=== PATIENT | male | born 1950 | race Caucasian/White ===

== ENCOUNTER 2018-08-13 15:02 | Emergency (ER) | payer MEDICARE ==
[~2018-08-13] VITALS: Ht 182.9 cm; Wt 136.1 kg
--- NOTE | 2018-08-13 16:24 | Diagnostic Imaging Report ---
EXAMINATION: CHEST SINGLE (NOT PORTABLE) INDICATION: ^ERMD ORDER ^[id number] ^1530 ^Y COMPARISON: None FINDINGS: AP view TUBES and LINES: None. LUNGS: Lungs are hyperinflated. There is no evidence of pneumonia or pulmonary edema. PLEURA: No significant pleural effusion or pneumothorax. HEART AND MEDIASTINUM: The cardiomediastinal silhouette is unremarkable. BONES AND SOFT TISSUES: No acute osseous lesion. Soft tissues are unremarkable. UPPER ABDOMEN: No free air under the diaphragm. IMPRESSION: Hyperinflated lungs, suggestive of emphysematous changes. No focal consolidation. Signed by: Dr. Cooper Vega MD on 08/13/2018 4:21 PM
[2018-08-13 16:26] LABS: BASOPHILS % 0.7 % (0.0-1.0); EOSINOPHILS # (AUTO) 0.2 (0.0-0.4); HEMATOCRIT 40.6 % (38.2-49.6); HEMOGLOBIN 14.6 g/dL (14.0-18.0); LYMPHOCYTES # (AUTO) 0.6 (1.0-3.2); LYMPHOCYTES % 14.3 % (18.0-39.1); MEAN CORPUSCULAR HEMOGLOBIN 30.7 pg (28-32); MEAN CORPUSCULAR VOLUME 85.5 fL (81-99); MONOCYTES # (AUTO) 0.5 (0.2-0.8); MONOCYTES % 10.8 % (4.4-11.3); NEUTROPHILS % 69.5 % (38.7-80.0); PLATELET COUNT 109 x10e3/uL (140-360); RED BLOOD COUNT 4.75 x10e6/uL (4.3-5.7); RED CELL DISTRIBUTION WIDTH 14.5 % (11.7-14.4)
[2018-08-13 16:41] LABS: INR 0.86; PROTHROMBIN TIME 12.2 seconds (11.9-14.5)
[2018-08-13 16:42] LABS: PARTIAL THROMBOPLASTIN TIME 32.8 seconds (23.8-35.5)
[2018-08-13 16:45] LABS: CLARITY,URINE CLEAR (CLEAR); COLOR,URINE YELLOW (YELLOW)
[2018-08-13 16:46] LABS: KETONES,URINE 1+ (NEGATIVE); LEUKOCYTE ESTERASE ,URINE NEGATIVE (NEGATIVE); NITRITE,URINE NEGATIVE (NEGATIVE); PROTEIN,URINE DIPSTICK TRACE (NEGATIVE)
[2018-08-13 16:49] LABS: ALANINE AMINOTRANSFERASE 118 IU/L (0-55); ALBUMIN 3.4 g/dL (3.5-5.0); ALBUMIN/GLOBULIN RATIO 1.2 (0.8-2.0); ALKALINE PHOSPHATASE 120 IU/L (40-150); ANION GAP 15.2 mmol/L (8-16); BLOOD UREA NITROGEN 13 mg/dL (7-26); BUN/CREATININE RATIO 17 (6-25); CALCIUM 9.2 mg/dL (8.4-10.2); CARBON DIOXIDE 22 mmol/L (22-29); CHLORIDE 101 mmol/L (98-107); CREATINE KINASE 129 IU/L (30-200); CREATININE, SERUM 0.76 mg/dL (0.72-1.25); EST GLOMERULAR FILTRATION RATE > 60 ML/MIN (60-); GLUCOSE 279 mg/dL (74-118); MAGNESIUM 2.2 MG/DL (1.3-2.1); POTASSIUM 3.2 mmol/L (3.5-5.1); SODIUM 135 mmol/L (136-145)
[2018-08-13 16:51] LABS: BILIRUBIN,URINE 1+ (NEGATIVE); URINE UROBILINOGEN 1 mg/dL (0.2 - 1)
[2018-08-13 17:11] LABS: THYROID STIMULATING HORMONE 3.016 uIU/mL (0.350-4.940)
[2018-08-13 17:46] LABS: MUCUS,URINE RARE (RARE)
[2018-08-13 17:47] LABS: CALCIUM OXALATE CRYSTALS,UR FEW (FEW); RBC,URINE 0-5 /HPF (0-5); WBC,URINE (MAN) 0-5 /HPF (0-5)
[2018-08-13] MEDS ORDERED: IOPAMIDOL 370 MG/ML 200 ML INFUS..BTL INJ ONE (18:44)
[2018-08-13] MEDS ORDERED: SODIUM CHLORIDE 0.9% 50ML 50 ML ONE (18:44)
--- NOTE | 2018-08-13 19:06 | Diagnostic Imaging Report ---
Exam: Head CT without contrast History: Numbness Comparison studies: None Technique: Axial images were obtained from the skull base to the vertex. Coronal and sagittal images reconstructed from the axial data. Dose modulation, iterative reconstruction, and/or weight based adjustment of the mA/kV was utilized to reduce the radiation dose to as low as reasonably achievable. Radiation dose: Total DLP: 921 mGy*cm. Estimated effective dose: DLP x 0.015 Intravenous contrast: None Findings: Scalp: No abnormalities. Bones: No fractures, blastic or lytic lesions. Brain sulci: Moderately prominent bilateral parietal sulci. Remaining sulci are mildly prominent. Ventricles: Normal in size and configuration. No hydrocephalus. Extra-axial spaces: Incidental small mucous cisterna magna. No mass or fluid collection. Parenchyma: No mass, acute hemorrhage or acute cortical infarcts. A few subtle hypodensities in the supratentorial white matter nonspecific most compatible with chronic microvascular ischemic changes. Sellar/suprasellar region: No abnormalities. Craniocervical junction: Patent foramen magnum. No Chiari one malformation. 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 Atherosclerotic calcifications in the carotid siphons. IMPRESSION: No acute intracranial abnormalities. Chronic findings: 1. Mild microvascular ischemic changes. 2. Mild generalized brain volume loss with greater disproportionate volume loss in the bilateral parietal lobes. Signed by: Dr. Pardeep Keith M.D. on 08/13/2018 7:03 PM
--- NOTE | 2018-08-13 19:08 | Diagnostic Imaging Report ---
EXAM: CT Abdomen and Pelvis WITH contrast INDICATION: ^r/o sbo divertic pancreatitis appy ^[id number] ^1700 COMPARISON: None. TECHNIQUE: Abdomen and pelvis were scanned utilizing a multidetector helical scanner from the lung base to the pubic symphysis after administration of IV contrast. Coronal and sagittal reformations were obtained. Dose modulation, iterative reconstruction, and/or weight based adjustment of the mA/kV was utilized to reduce the radiation dose to as low as reasonably achievable. Routine protocol was performed. Scan was performed when during portal venous phase. IV CONTRAST: 100 mL of Isovue-370 ORAL CONTRAST: None. COMPLICATIONS: None RADIATION DOSE: Total DLP: 1180.89 mGy*cm Estimated effective dose: (DLP x 0.015 x size factor) mSv CTDIvol has been reviewed. It is below the limits set by the Radiation Protocol Committee (RPC). FINDINGS: LINES and TUBES: None. LOWER THORAX: Unremarkable HEPATOBILIARY: Hepatomegaly. Left hepatic lobe hyperdense focus (series 3, image 10) is probably due to vascular shunting. Otherwise, no focal hepatic lesion. No biliary ductal dilation. GALLBLADDER: Layering sludge or tiny gallstones within gallbladder. No wall thickening. SPLEEN: Splenomegaly. PANCREAS: No focal masses or ductal dilatation. ADRENALS: No adrenal nodules KIDNEYS/URETERS: Kidneys enhance symmetrically. No hydronephrosis. Bilateral renal cysts, the largest measuring 7.2 x 5.3 cm on the left side. Left midpole 7 mm calculus. GI TRACT: No abnormal distention, wall thickening, or evidence of bowel obstruction. Small to moderate size hiatal hernia. Right hemicolectomy. PELVIC ORGANS/BLADDER: Unremarkable. LYMPH NODES: No lymphadenopathy. VESSELS: Unremarkable. PERITONEUM / RETROPERITONEUM: No free air or fluid. BONES: Degenerative changes of lumbar spine. Right L5 pars defect. Grade 1 L5-S1 spondylolisthesis. SOFT TISSUES: Unremarkable. IMPRESSION: 1. No evidence of bowel obstruction. 2. No evidence of pancreatitis. 3. Hepatosplenomegaly. 4. Gallbladder sludge or small stones without evidence of cholecystitis. 5. Moderate size hiatal hernia. 6. Bilateral renal cysts. 7. Left renal nonobstructive subcentimeter calculus. Signed by: Dr. Cooper Vega MD on 08/13/2018 7:05 PM
[2018-08-13 20:00] VITALS: BP 163/91
[2018-08-13] MEDS ORDERED: POTASSIUM CHLORIDE 20 MEQ TAB CR PO ONE (20:00)
== END 2018-08-13 20:01 | disposition home or self-care (01) ==
LOC: ER 15:02
DX: R20.2 Paresthesia of skin (principal); K52.9 Noninfective gastroenteritis and colitis, unspecified; E87.6 Hypokalemia; E03.9 Hypothyroidism, unspecified; E66.9 Obesity, unspecified
CPT/HCPCS: 36415; 70450; 71045; 74177; 80053; 81001; 82550; 82553; 83735; 83880; 84443; 84484; 85025; 85610; 85730; 87086; 87400; 93005; 99284; Q9967

== ENCOUNTER 2018-10-18 10:12 | Emergency (ER) | payer MEDICARE ==
[~2018-10-18] VITALS: Ht 177.8 cm; Wt 99.3 kg
--- OUTSIDE RECORDS SUMMARY | 2018-10-18 10:14 | XMS REPORT ---
Author Author [facility] Address Unknown Phone Unavailable Care Team Providers Care Administrative Support Specialist Name Role Phone Florencio PETERSON Unavailable Unavailable Problems This patient has no known problems. Allergies, Adverse Reactions, Alerts This patient has no known allergies or adverse reactions. Medications This patient has no known medications. Results Test Description Test Time Test Comments Text Results Atomic Results Result Comments CT BRAIN WO 2018-08-13 18:59:00 [place] [address] Patient Name: YUNI PAYAN MR #: [id number] : 1950 Age/Sex: 67/M Req #: [id number] Adm Physician: Ordered by: ROSANA PETERSON MD Report #: [id number] Location: ER Room/Bed: Procedure: [id number] CT/CT BRAIN WO Exam Date: 08/13/18 Exam Time: 1700 REPORT STATUS: Signed Exam: Head CT without contrast History: Numbness Comparis on studies: None Technique: Axial images were obtained from the skull base to the vertex. Coronal and sagittal images reconstructed from the axial data. Dose modulation, iterative reconstruction, and/or weight based adjustment of the mA/kV was utilized to reduce the radiation dose to as low as reasonably achievable. Radiation dose: Total DLP: 921 mGy*cm. Estimated effective dose: DLP x 0.015 Intravenous contrast: None Findings: Scalp: No abnormalities. Bones: No fractures, blastic or lytic lesions. Brain sulci: Moderately prominent bilateral parietal sulci. Remaining sulci are mildly prominent. Ventricles: Normal in size and configuration. No hydrocephalus. Extra-axial spaces: Incidental small mucous cisterna magna. No mass or fluid collection. Parenchyma: No mass, acute hemorrhage or acute cortical infarcts. A few subtle hypodensities in the supratentorial white matter nonspecific most compatible with chronic microvascular ischemic changes. Sellar/suprasellar region: No abnormalities. Craniocervical junction: Patent foramen magnum. No Chiari one malformation. 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 Atherosclerotic calcifications in the carotid siphons. IMPRESSION: No acute intracranial abnormalities. Chronic findings: 1. Mild microvascular ischemic changes. 2. Mild generalized brain volume loss with greater disproportionate volume loss in the bilateral parietal lobes. Signed by: Dr. Apolinar Keith M.D. on 08/13/2018 7:03 PM Dictated By: APOLINAR KEITH MD 02 Transcribed By: VIKTORIA on 08/13/181902 COPY TO: ROSANA PETERSON MD CT ABDOMEN/PELVIS W 2018-08-13 18:55:00 [place] [address] Patient Name: YUNI PAYAN MR #: [id number] : 1950 Age/Sex: 67/M Req #: [id number] Adm Physician: Ordered by: TAHIR CALLOWAY [employer]PORATE TRAVEL CONSULTANT Report #: [id number] Location: ER Room/Bed: Procedure: [id number] CT/CT ABDOMEN/PELVIS W Exam Date: 08/13/18 Exam Time: 1700 REPORT STATUS: Signed EXAM: CT Abdomen and Pelvis WITH contrast INDICATI ON: r/o sbo divertic pancreatitis appy [id number] 1700 COMPARISON: None. TECHNIQUE: Abdomen and pelvis were scanned utilizing a multidetector helical scanner from the lung base to the pubic symphysis after administration of IV contrast. Coronal and sagittal reformations were obtained. Dose modulation, iterative reconstruction, and/or weight based adjustment of the mA/kV was utilized to reduce the radiation dose to as low as reasonably achievable. Routine protocol was performed. Scan was performed when during portal venous phase. IV CONTRAST: 100 mL of Isovue-370 ORAL CONTRAST: None. COMPLICATIONS: None RADIATION DOSE: Total DLP: 1180.89 mGy*cm Estimated effective dose: (DLP x 0.015 x size factor) mSv CTDIvol has been reviewed. It is below the limits set by the Radiation Protocol Committee (RPC). FINDINGS: LINES and TUBES: None. LOWER THORAX: Unremarkable HEPATOBILIARY: Hepatomegaly. Left hepatic lobe hyperdense focus (series 3, image 10) is probably due to vascular shunting. Otherwise, no focal hepatic lesion. No biliary ductal dilation. GALLBLADDER: Layering sludge or tiny gallstones within gallbladder. No wall thickening. SPLEEN: Splenomegaly. PANCREAS: No focal masses or ductal dilatation. ADRENALS: No adrenal nodules KIDNEYS/URETERS: K idneys enhance symmetrically. No hydronephrosis. Bilateral renal cysts, the largest measuring 7.2 x 5.3 cm on the left side. Left midpole 7 mm calculus. GI TRACT: No abnormal distention, wall thickening, or evidence of bowel obstruction. Small to moderate size hiatal hernia. Right hemicolectomy. PELVIC ORGANS/BLADDER: Unremarkable. LYMPH NODES: No lymphadenopathy. VESSELS: Unremarkable. PERITONEUM / RETROPERITONEUM: No free air or fluid. BONES: Degenerative changes of lumbar spine. Right L5 pars defect. Grade 1 L5-S1 spondylolisthesis. SOFT TISSUES: Unremarkable. IMPRESSION: 1. No evidence of bowel obstruction. 2. No evidence of pancreatitis. 3. Hepatosplenomegaly. 4. Gallbladder sludge or small stones without evidence of cholecystitis. 5. Moderate size hiatal hernia. 6. Bilateral renal cysts. 7. Left renal nonobstructive subcentimeter calculus. Signed by: Dr. Cooper Alas MD on 08/13/2018 7:05 PM Dictated By: COOPER ALAS MD 04 Transcribed By: VIKTORIA on 08/13/181904 COPY TO: TAHIR CALLOWAY NP CHEST SINGLE (NOT PORTABLE) 2018-08-13 16:19:00 [facility] [address] [place] [address] Patient Name: YUNI PAYAN MR #: [id number] : 1950 Age/Sex: 67/M Req #: [id number] Adm Physician: Ordered by: TAHIR CALLOWAY NP Report #: [id number] Location: ER Room/Bed: Procedure: [id number] DX/CHEST SINGLE (NOT PORTABLE) Exam Date: 08/13/18 Exam Time: 1530 REPORT STATUS: Signed EXAMINATION: CHEST SINGLE (NOT PORTABLE) INDICATION: ERMD ORDER [id number] 1530 Y COMPARISON: None FINDINGS: AP view TUBES and LINES: None. LUNGS: Lungs are hyperinflated. There is no evidence of pneumonia or pulmonary edema. PLEURA: No significant pleural effusion or pneumothorax. HEART AND MEDIASTINUM: The cardiomediastinal silhouette is unremarkable. BONES AND SOFT TISSUES: No acute osseous lesion. Soft tissues are unremarkable. UPPER ABDOMEN: No free air under the diaphragm. IMPRESSION: Hyperinflated lungs, suggestive of emphysematous changes. No focal consolidation. Signed by: Dr. Cooper Alas MD on 08/13/2018 4:21 PM Dictated By: COOPER ALAS MD 20 Transcribed By: VIKTORIA on 08/13/181620 COPY TO: TAHIR CALLOWAY NP
[2018-10-18] MEDS ORDERED: LEVOTHYROXINE88 MCG PO (11:17)
[2018-10-18] MEDS ORDERED: LEVOTHYROXINE100 MC1 PO (11:17)
[2018-10-18] MEDS ORDERED: GLYBURIDE5 MG PO (11:18)
[2018-10-18 11:31] LABS: BASOPHILS # (AUTO) 0.1 (0.0-0.1); BASOPHILS % 0.8 % (0.0-1.0); EOSINOPHILS # (AUTO) 0.1 (0.0-0.4); EOSINOPHILS % 1.6 % (0.0-6.0); HEMATOCRIT 40.6 % (38.2-49.6); HEMOGLOBIN 14.4 g/dL (14.0-18.0); LYMPHOCYTES # (AUTO) 0.8 (1.0-3.2); MEAN CORPUSCULAR HEMOGLOBIN 30.2 pg (28-32); MEAN CORPUSCULAR HGB CONC 35.5 g/dL (31-35); MEAN CORPUSCULAR VOLUME 85.1 fL (81-99); MONOCYTES # (AUTO) 0.6 (0.2-0.8); NEUTROPHILS # (AUTO) 4.7 (2.1-6.9); NEUTROPHILS % 74.1 % (38.7-80.0); PLATELET COUNT 188 x10e3/uL (140-360); RED BLOOD COUNT 4.77 x10e6/uL (4.3-5.7); RED CELL DISTRIBUTION WIDTH 14.1 % (11.7-14.4)
[2018-10-18 11:52] LABS: INR 0.93
[2018-10-18 11:53] LABS: PARTIAL THROMBOPLASTIN TIME 36.6 seconds (23.8-35.5)
[2018-10-18 11:55] LABS: ALANINE AMINOTRANSFERASE 33 IU/L (0-55); ALBUMIN 3.9 g/dL (3.5-5.0); ALBUMIN/GLOBULIN RATIO 1.7 (0.8-2.0); ALKALINE PHOSPHATASE 76 IU/L (40-150); ANION GAP 16.4 mmol/L (8-16); BLOOD UREA NITROGEN 15 mg/dL (7-26); BUN/CREATININE RATIO 19 (6-25); CALCIUM 9.4 mg/dL (8.4-10.2); CARBON DIOXIDE 21 mmol/L (22-29); CHLORIDE 102 mmol/L (98-107); CREATINE KINASE 121 IU/L (30-200); EST GLOMERULAR FILTRATION RATE > 60 ML/MIN (60-); GLUCOSE 143 mg/dL (74-118); POTASSIUM 3.4 mmol/L (3.5-5.1); SODIUM 136 mmol/L (136-145)
[2018-10-18 12:18] LABS: THYROID STIMULATING HORMONE 0.284 uIU/mL (0.350-4.940)
--- NOTE | 2018-10-18 12:20 | Diagnostic Imaging Report ---
EXAMINATION: PA and lateral views of the chest. COMPARISON: CT abdomen and pelvis 08/13/2018 CLINICAL HISTORY: Weakness, shortness of breath DISCUSSION: The lungs are well-inflated and without focal airspace consolidation, pleural effusion, or pneumothorax. Cardiomediastinal contour and pulmonary vasculature are within normal limits. Small hiatal hernia described on the comparison CT is poorly visualized by plain radiography. No acute osseous abnormality. IMPRESSION: No acute cardiopulmonary abnormalities. Signed by: Dr. Pardeep Rivera M.D. on 10/18/2018 12:17 PM
[2018-10-18] MEDS ORDERED: SODIUM CHLORIDE 0.9% 1000ML 1,000 ML IV SCH (13:09)
[2018-10-18] MEDS ORDERED: HYDROCODONE/APAP 10MG-325MG TAB PO PRN (13:15)
[2018-10-18] MEDS ORDERED: ONDANSETRON HCL INJ 2MG/ML 2ML 2 MG/ML VIAL IV PRN (13:15)
[2018-10-18] MEDS ORDERED: DEXTROSE 50% SYRINGE 50 ML IV PRN (13:15)
[2018-10-18 13:21] LABS: BILIRUBIN,URINE SMALL (NEGATIVE); CLARITY,URINE SL CLOUDY (CLEAR); COLOR,URINE YELLOW (YELLOW); LEUKOCYTE ESTERASE ,URINE NEGATIVE (NEGATIVE); NITRITE,URINE NEGATIVE (NEGATIVE); PROTEIN,URINE DIPSTICK NEGATIVE (NEGATIVE); URINE UROBILINOGEN 4 mg/dL (0.2 - 1)
[2018-10-18] MEDS ORDERED: GADOBENATE DIMEGLUMINE 0 ML IV ONE (13:23)
[2018-10-18 13:38] LABS: KETONES,URINE 1+ (NEGATIVE)
[2018-10-18 13:41] LABS: WBC,URINE (MAN) 0-5 /HPF (0-5)
[2018-10-18 13:42] LABS: AMORPHOUS SEDIMENT,URINE MANY (FEW); BACTERIA,URINE MODERATE /HPF; MUCUS,URINE MODERATE (RARE)
[2018-10-18] MEDS ORDERED: INSULIN LISPRO 100 UNIT/1 ML 3ML VIAL SQ SCH (16:30)
[2018-10-18 18:25] VITALS: BP 146/64
--- NOTE | 2018-10-18 21:39 | Consultation ---
DATE OF CONSULTATION: 10/18/2018 Neurology Consult Note HISTORY OF PRESENT ILLNESS: Mr. Davila is a 67-year-old right-hand dominant man with past medical history significant for diabetes mellitus type 2 and hypothyroidism, who presents to the emergency center with multiple symptoms. Beginning approximately 3 months ago, the patient began to experience numbness over different parts of his body. The numbness was initially centered in his stomach. It then jumped to his chest, his legs (upper legs followed by lower legs), and lastly to his arms. At present, the patient endorses numbness of the left forearm distal to the elbow. He reports numbness affecting the last three digits of the right hand and radiating proximally in an ulnar distribution to the right shoulder. The patient does not report burning pain, tingling, pins and needles sensation, or other uncomfortable sensation associated with the numbness. In addition to the numbness described above, the patient endorses weakness of both hands as well as the left arm. Furthermore, the patient endorses generalized weakness, which is further described as fatigue. In addition to the above symptoms, Mr. Davila endorses neck and low back pain. This pain is further described as a dull aching pain that does not radiate. It is moderate in severity. The pain is exacerbated by laying/sleeping in certain positions. It improves with minimal physical activity and stretching. The symptoms described above are constant, but wax and wane in intensity. Lastly, Mr. Davila endorses intermittent shortness of breath. Occasionally, he reports taking quick shallow breaths secondary to his "diaphragm being pushed up" by tightening of the abdominal muscles. Within the past several weeks, Mr. Davila was evaluated by a neurologist, Dr. Valentina Rojo. Dr. Rojo was uncertain as to the etiology of the patient's symptoms. MRIs of his spine were ordered. However, the patient has yet to have these studies performed. Mr. Davila reports no significant change in his symptoms for at least one week. REVIEW OF SYSTEMS: Fatigue, decreased oral intake, generalized weakness with superimposed weakness of both arms and hands, numbness as described in the history of present illness, neck and low back pain. PAST MEDICAL HISTORY: Diabetes mellitus type 2, hypothyroidism, prior history of small intestine carcinoma. PAST SURGICAL HISTORY: Partial small bowel resection with lymph node dissection, lipoma resection, and wisdom tooth extraction. PAST HOSPITALIZATIONS: Surgeries/procedures as listed, pneumonia, Staphylococcus aureus infection, similar symptoms as described in the history of present illness at the end of July 2018. FAMILY MEDICAL HISTORY: The patient's paternal and maternal grandparents are . Their medical histories are unknown. The patient's father is from a brain tumor (glioblastoma multiforme ?). The patient's mother is alive and healthy. Mr. Davila has two siblings, a brother and a sister, both of whom are alive and healthy. The patient has two sons, both of whom are alive. One son has diabetes mellitus type 1. The second son is healthy. SOCIAL HISTORY: Mr. Davila is . He is retired. The patient does not report current or prior tobacco, alcohol, or recreational drug use. HOME MEDICATIONS: Glyburide 5 mg by mouth daily and levothyroxine 200 mcg by mouth daily. ALLERGIES: NO KNOWN DRUG ALLERGIES. NO KNOWN FOOD ALLERGIES. NO KNOWN ALLERGIES TO LATEX. NO KNOWN ALLERGIES TO IODINE OR OTHER CONTRAST MATERIALS. PHYSICAL EXAMINATION: VITAL SIGNS: Height 70 inches, weight 219 pounds, BMI 31.4 kg/m2, blood pressure 140/70 mmHg, pulse 80 beats per minute, respiratory rate 20 breaths per minute, and oxygen saturation 99% on room air. GENERAL: The patient is awake and alert, does not appear distressed. Obese. HEENT: Normocephalic and atraumatic. Pupils are equal, round, and reactive to light. Bilateral exophthalmos. Moist mucous membranes. NECK: Supple. No appreciable thyromegaly. No appreciable carotid bruits. CARDIOVASCULAR: S1, S2, regular rate and rhythm. No murmurs, rubs, or gallops. RESPIRATORY: Clear to auscultation bilaterally. No wheezes, rhonchi, or rales. EXTREMITIES: The skin is warm and dry. No clubbing, cyanosis, or edema. The posterior tibial and dorsalis pedis pulses are 1+ and symmetric. SKIN: No rashes or lesions. NEUROLOGIC: Memory/Attention: The patient is awake and alert, oriented to person, place, time, and situation. Cranial Nerves: Cranial nerve I - not tested. Cranial nerves II, III, IV, and - pupils are equal and round, react briskly to light (from 4 mm to 2 mm). Extraocular movements intact. No nystagmus. Cranial nerve V - sensation to light touch and pinprick is intact in the bilateral V1 through V3 distributions. Strength in the temporalis and masseter muscles are within normal limits. Cranial nerve VII - the face is symmetric as are all facial movements. Strength is within normal limits. Cranial nerve VIII - hearing is intact to finger rub bilaterally. Cranial nerves IX, X - the soft palate elevates equally and symmetrically. Cranial nerve XI - normal strength of the bilateral sternocleidomastoid and trapezius muscles. Cranial nerve XII - the tongue protrudes midline and moves symmetrically from vesi-sq-xper. Strength: Bulk is normal. Strength is 5/5 in the bilateral deltoids, biceps, triceps, wrist flexors and extensors, finger flexors and extensors, intrinsic hand muscles, hip flexors, knee flexors and extensors, ankle dorsiflexion and plantar flexion, and intrinsic foot muscles. Tone is normal. DTRs: Deep tendon reflexes are trace and symmetric at the triceps, biceps, and brachioradialis. Deep tendon reflexes are absent and symmetric at the patellas and Achilles. Plantar responses are flexor bilaterally. Sensation: Sensation is intact to light touch and pinprick in both arms and both legs. Cerebellar: Yakqaw-ubgj-gnzdfa and heel-boo movements are intact without dysmetria or other impairment. Gait: Deferred. Speech: Spontaneous speech is normal without appreciable dysarthria or aphasia. Repetition is intact. Involuntary Movements: None. Pronator Drift: None. LABORATORY DATA: A comprehensive metabolic panel is significant for potassium of 3.4, carbon dioxide of 21, anion gap of 16.4, glucose of 143, total bilirubin of 3.4, AST of 35, and total protein 6.2. Magnesium is 2.4. B-natriuretic peptide is 53.0. Cardiac enzymes are negative x1. TSH 0.284. The CBC with differential and platelets reveals a white blood cell count of 6.37 with 74.1% neutrophils, 13.0% lymphocytes, 10.0% monocytes, 1.6% eosinophils, and 0.8% basophils. The hemoglobin and hematocrit are 14.4 and 40.6, respectively. The platelet count is 188. PT 13.0, INR 0.93, and PTT 36.6. A urinalysis reveals slightly cloudy urine with 1+ glucose, 1+ ketones, many amorphous sediment, moderate urine bacteria, and moderate mucus. A urine culture is pending. DIAGNOSTIC STUDIES: Electrocardiogram on 10/18/2018: Sinus rhythm at 84 beats per minute with sinus arrhythmia with occasional premature ventricular complexes. Chest x-ray on 10/18/2018: No acute cardiopulmonary abnormalities. ASSESSMENT AND PLAN: Mr. Davila is a 67-year-old right-hand dominant man with past medical history significant for diabetes mellitus type 2 and hypothyroidism, who presents to the emergency center at [facility] with approximately 3 months of fatigue, generalized weakness, numbness as described in the history of present illness, neck and low back pain. Of note, there has been no significant change in the patient's symptoms for at least one week. Other than diminished deep tendon reflexes, the patient's neurological examination is nonfocal. His laboratory data and other diagnostic studies have been reviewed and are documented above. The etiology of the patient's multiple symptoms is unknown at this time. However, the patient is medically and neurologically stable. In my opinion, the patient's symptoms do not warrant inpatient admission for further evaluation. Mr. Davila may be discharged from the emergency center and may follow up as an outpatient for further evaluation. Thank you for this consultation. No other recommendations from the Neurology Service at this time. TIME SPENT: 50 minutes. Annemarie Erazo MD CP/GEO /[id number]
== END 2018-10-18 18:25 | disposition home or self-care (01) ==
LOC: ER 10:12 → ERHOLD 13:09 → UNDOADMIN 13:09 → UNDODISIN 18:25
DX: R20.2 Paresthesia of skin (principal); R53.1 Weakness; R63.4 Abnormal weight loss; Z68.31 Body mass index [BMI] 31.0-31.9, adult; E11.9 Type 2 diabetes mellitus without complications; E03.9 Hypothyroidism, unspecified; Z85.068 Personal history of other malignant neoplasm of small intestine
CPT/HCPCS: 36415; 71046; 80053; 81001; 82550; 82553; 82948; 83735; 83880; 84443; 84484; 85025; 85610; 85730; 87086; 93005; 99284; J7030

== ENCOUNTER 2019-01-19 01:36 | Emergency (ER) | payer MEDICARE ==
[~2019-01-19] VITALS: Ht 177.8 cm; Wt 99.3 kg
[~2019-01-19 01:36] MED LIST: GLYBURIDE5 MG PO; LEVOTHYROXINE100 MC1 PO; LEVOTHYROXINE88 MCG PO
--- NOTE | 2019-01-19 02:45 | NUR ---
NOTIFIED PT HE WAS UNABLE TO HAVE NOTHING BY MOUTH UNTIL TESTS WERE RESULTED.PT STATES HE WANTS TO LEAVE. PT STATED "I AM JUST GOING TO LEAVE. NOTHING IS WRONG WITH ME. I AM JUST DEHYDRATED. Y'ALL WON'T LET ME DRINK WATER". DR. COHN EXPLAINED TO PT IT WAS ONLY GOING TO BE A SHORT TIME FRAME UNTIL HE COULD DRINK WATER WHILE WE AWAIT RESULTS. PRINTED AMA FORM AND VERBALIZED THE RISKS OF LEAVING HOSPITAL. PT VERBALIZED UNDERSTANDING OF RISK.
[2019-01-19 03:05] LABS: BASOPHILS % 0.8 % (0.0-1.0); EOSINOPHILS % 0.6 % (0.0-6.0); HEMATOCRIT 36.6 % (38.2-49.6); HEMOGLOBIN 13.7 g/dL (14.0-18.0); LYMPHOCYTES # (AUTO) 0.7 (1.0-3.2); MEAN CORPUSCULAR HEMOGLOBIN 30.6 pg (28-32); MEAN CORPUSCULAR HGB CONC 37.4 g/dL (31-35); MEAN CORPUSCULAR VOLUME 81.9 fL (81-99); MONOCYTES # (AUTO) 0.8 (0.2-0.8); MONOCYTES % 15.4 % (4.4-11.3); NEUTROPHILS # (AUTO) 3.5 (2.1-6.9); PLATELET COUNT 154 x10e3/uL (140-360); RED BLOOD COUNT 4.47 x10e6/uL (4.3-5.7); RED CELL DISTRIBUTION WIDTH 13.1 % (11.7-14.4)
--- NOTE | 2019-01-19 03:15 | NUR ---
PT STATED HE WANTED TO RESUME CARE AND HAVE ORDERED TESTS DONE. PT CONTINUED TO DRINK WATER.
[2019-01-19 03:23] LABS: ALANINE AMINOTRANSFERASE 36 IU/L (0-55); ALBUMIN 3.6 g/dL (3.5-5.0); ALKALINE PHOSPHATASE 86 IU/L (40-150); ANION GAP 16.4 mmol/L (8-16); BLOOD UREA NITROGEN 8 mg/dL (7-26); BUN/CREATININE RATIO 11 (6-25); CALCIUM 9.2 mg/dL (8.4-10.2); CARBON DIOXIDE 23 mmol/L (22-29); CHLORIDE 93 mmol/L (98-107); CREATINE KINASE 53 IU/L (30-200); CREATININE, SERUM 0.75 mg/dL (0.72-1.25); EST GLOMERULAR FILTRATION RATE > 60 ML/MIN (60-); GLUCOSE 106 mg/dL (74-118); POTASSIUM 3.4 mmol/L (3.5-5.1); SODIUM 129 mmol/L (136-145)
--- NOTE | 2019-01-19 03:55 | Diagnostic Imaging Report ---
EXAMINATION: CHEST SINGLE (PORTABLE) COMPARISON: Chest x-ray 10/18/2018 INDICATION: Shortness of breath ^sob ^[id number] ^0330 ^Y DISCUSSION: Frontal view of the chest obtained at 0338 hours. HEART AND MEDIASTINUM: The cardiomediastinal silhouette is unremarkable. LINES: None. LUNGS: Diffuse hyperinflation consistent with COPD/emphysema. No pneumonia or pulmonary edema. Subcentimeter calcified granuloma in the lateral left upper lobe. PLEURA: No pleural effusion or pneumothorax. BONES AND SOFT TISSUES: No focal osseous lesion. The soft tissues are normal. IMPRESSION: Pulmonary hyperinflation suggestive of COPD/emphysema. No acute cardiopulmonary process. Signed by: Dr. Eric Murray MD on 01/19/2019 3:51 AM
--- NOTE | 2019-01-19 04:12 | NUR ---
PT SITTING UP IN CHAIR, AWAITING CARDIAC ENZYMES RESULTS.
[2019-01-19] MEDS ORDERED: POTASSIUM CHLORIDE 20 MEQ TAB CR PO STA (04:17)
[2019-01-19 05:21] VITALS: BP 128/79
== END 2019-01-19 08:06 | disposition home or self-care (01) ==
LOC: ER 01:36
DX: R06.09 Other forms of dyspnea (principal); K52.9 Noninfective gastroenteritis and colitis, unspecified; E87.1 Hypo-osmolality and hyponatremia; E87.6 Hypokalemia
CPT/HCPCS: 36415; 71045; 80053; 82550; 82553; 83880; 84484; 85025; 93005; 99284